=== PATIENT | female | born 1985 | race Caucasian/White ===

== ENCOUNTER 2021-01-24 14:46 | Outpatient (CLI) | payer BC | END 2021-01-24 14:47 | disposition home or self-care (01) | LOC: BICRAD 14:46 | PROVIDERS: ATTEND Internal Medicine Rheumatology | DX: M25.542 Pain in joints of left hand (principal); M25.541 Pain in joints of right hand; M25.522 Pain in left elbow; M25.521 Pain in right elbow ==